=== PATIENT | female | born 1965 | race African-American/Black ===

== ENCOUNTER 2022-09-29 00:20 | Day surgery (SDC) | payer OTHER, SELFPAY ==
[2022-09-18 10:28] VITALS: BMI 34.1
[2022-09-29 12:06] VITALS: BP 101/66; PULSE 74; RESP 18; TEMP 36.2; O2SAT 100
--- NOTE | 2022-09-29 12:07 | PM.HPGS ---
History of Present Illness History of Present Illness Consent: Risks, benefits, and alternatives have been discussed and questions answered. Patient agrees to proceed with procedure. Chief complaint: neoplasm screening Narrative: Ludmila Smith is a 57 year old female Presents for screening colonoscopy. Patient's current weight appetite and bowel movements are normal. She denies abdominal pain. She has had no bleeding. Family history is significant for cancer in the family but no specific colon cancer. Patient presents today for neoplasia screening. Review of Systems Review of Systems: Review of systems noncontributory. [facility] Past Medical History Medical History (Updated 09/29/22 @ 12:09 by Clinton Wilkerson MD) Essential (primary) hypertension Headache disorder Prediabetes Vitamin D deficiency Social History Social History Smoking status: Never smoker Alcohol intake: current Alcohol use details: socially Substance use: never Substance use type: does not use Lack of Transportation: No Lack of Food: Never True Current Housing: I Have Housing Concerned About Future Housing: No Difficulty Paying Gas/Electric Bills: No Difficulty Paying for Meds: No Currently Unemployed: No Living arrangements: with family Occupation/Education: occupation Gender identity (if verbalized by the patient): Female Sexual Orientation (if Verbalized by the Patient): Straight or Heterosexual Spiritual care concerns: No Meds Home Medications and Allergies Home Medications Medication Instructions Recorded Confirmed Type amlodipine 5 mg tablet 5 mg PO DAILY #90 tabs 07/23/22 09/18/22 Rx benazepril 20 1 tablet PO DAILY #90 tabs 07/23/22 09/18/22 Rx mg-hydrochlorothiazide 25 mg tablet zolpidem 10 mg tablet 10 mg PO QHS PRN Sleep 08/19/22 09/18/22 History Allergies Allergy/AdvReac Type Severity Reaction Status Date / Time tramadol AdvReac Mild Nausea and Verified 09/29/22 12:04 Vomiting Exam Narrative: Physical exam reveals patient to be alert. Vital signs stable. HEENT exam is unremarkable. Patient is anicteric. Lungs are clear to auscultation and percussion. Heart is without murmur or extra sounds. Abdomen bowel sounds are present soft nontender with no organomegaly. Digital external rectal exam is normal. Assessment and Plan Assessment and plan (1) Encounter for screening colonoscopy: Code(s): Z12.11 - Encounter for screening for malignant neoplasm of colon Status: Acute Assessment and Plan: Patient presents today for screening colonoscopy. She appears to be at average risk for colon polyps. Further recommendations may be given after endoscopy.
[2022-09-29] MEDS: LACTATED RINGERS 1,000 ML 150 ML IV CONT (12:21)
[2022-09-29 13:37] VITALS: BP 91/48; PULSE 83; RESP 19; O2SAT 100
[2022-09-29 13:47] VITALS: BP 96/55; PULSE 84; RESP 21; O2SAT 100
[2022-09-29 13:57] VITALS: BP 94/59; PULSE 78; RESP 22; O2SAT 100
== END 2022-09-29 14:04 | disposition home or self-care (01) ==
PROVIDERS: PCP Family Medicine; Visit Provider Internal Medicine Gastroenterology
PROC: 0DJD8ZZ Inspection of Lower Intestinal Tract, Via Natural or Artificial Opening Endoscopic (ICD-10-PCS; CPT 45378; principal; 2022-09-29 13:15)
DX: Z12.11 Encounter for screening for malignant neoplasm of colon (principal); K64.8 Other hemorrhoids; I10 Essential (primary) hypertension
CPT/HCPCS: 45378; J2704; J7120

== ENCOUNTER 2023-05-10 13:51 | Outpatient (CLI) | payer OTHER, SELFPAY ==
--- NOTE | ~2023-05-10 | XR_ITS ---
EXAM: XR knee LT 3V DATE: 05/10/2023 14:12 HISTORY: PAIN TO LT KNEE, PAIN WITH WEIGHTBEARING, . COMPARISON: 08/30/2014. FINDINGS: Slightly decreased mineralization. No fracture or dislocation. No lytic or blastic lesion. Medial joint space narrowing. Mild tricompartmental osteophytosis. Quadriceps and patellar enthesopa thy. Small joint effusion. No erosion or periosteal change. Soft tissues within normal limits. IMPRESSION: Mild tricompartmental arthritis. Reviewed, dictated and finalized at location [facility]
== END 2023-05-10 13:52 | disposition home or self-care (01) ==
PROVIDERS: PCP Family Medicine; Visit Provider Family Medicine
DX: M17.12 Unilateral primary osteoarthritis, left knee (principal)
CPT/HCPCS: 73562

== ENCOUNTER 2023-08-14 11:07 | Outpatient (CLI) | payer OTHER, SELFPAY ==
[2023-08-14 11:56] LABS: Alanine Aminotransferase 26 U/L (6-35); Albumin Level 4.6 g/dL (3.5-5.1); Alkaline Phosphatase 109 U/L (38-126); Anion Gap 7 mmol/L (8-16); Aspartate Amino Transferase 37 U/L (14-36); Bilirubin,Total 0.8 mg/dL (0.2-1.3); Blood Urea Nitrogen 20 mg/dL (7-17); Calcium 9.9 mg/dL (8.4-10.2); Carbon Dioxide 30 mmol/L (22-30); Chloride 96 mmol/L (98-107); Cholesterol 166 mg/dL (0-200); Estimated Glomerular Filt Rate > 60; Glucose 126 mg/dL (65-110); HDL Direct 42 mg/dL; Sodium 133 mmol/L (137-145); Triglycerides 74 mg/dL (<150)
[2023-08-14 12:07] LABS: LDL Cholesterol Direct 99 mg/dL
[2023-08-14 12:19] LABS: Hemoglobin A1C 6.4 % (<5.7)
[2023-08-14 13:03] LABS: Vitamin D 25 Hydroxy 28.2 ng/mL
== END 2023-08-14 11:08 | disposition home or self-care (01) ==
LOC: ANHLAB 11:08
PROVIDERS: PCP Family Medicine; Visit Provider Family Medicine
DX: Z13.220 Encounter for screening for lipoid disorders (principal); R73.03 Prediabetes; E55.9 Vitamin D deficiency, unspecified; I10 Essential (primary) hypertension
CPT/HCPCS: 36415; 80053; 80061; 82306; 83036